=== PATIENT | male | born 1985 | race Caucasian/White ===

== ENCOUNTER 2018-12-15 23:12 | Inpatient (IN) | payer SELFPAY ==
[~2018-12-15] VITALS: Ht 177.8 cm; Wt 151.7 kg
[2018-12-15] MEDS: IPRATRPIUM/ALBUTEROL 0.5/2.5MG 3 ML NEBU. NEB SCH (20:50)
[2018-12-16] VITALS (11 sets, daily range): BP systolic 120–193; BP diastolic 88–123
[2018-12-16] MEDS ORDERED: THIAMINE 200 MG/2 ML VIAL. IV ONE (00:14)
[2018-12-16] MEDS ORDERED: FOLIC ACID 5 MG/ML SYRINGE for ER IV ONE (00:15)
--- NOTE | 2018-12-16 00:20 | ED.ADGEN ---
Past History Past Medical History: Alcoholism, Other Past Surgical History: No Surgical History Smoking: Greater than 1 pack/day Alcohol Use: Heavy Drug Use: None Adult General Chief Complaint Chief Complaint ".. I am hurting right here in the pit of my stomach..." 04/29 like.."... "I been taking petobismal off and on all week for the pain.. " HPI HPI Patient is a 33 year old male who presents with above hx and complaints of epigastric pain with acute onset at 1600 hrs. The patient denies any intake of bad food. Patient denies any specific ill contacts or travel. Patient denies any history immunosuppression. Patient has had some black stools but he has also been taking Pepto-Bismol. Patient has no previous history of cardiac disease or gallbladder disease. Patient gives no history of previous pancreatitis. Patient does drink between 3-4 pints of volka at a day. Has not been able to drink alcohol today because of his epigastric pain. Pain became more severe tonight at approximately 1600 hrs. No history of trauma. There is family history of gallbladder & DM disease with mother. Father hx [place] . Pt. normally follows with Dr. Levy Review of Systems Review of Systems Constitutional: Denies fever or chills [] Eyes: Denies change in visual acuity, redness, or eye pain [] HENT: Denies nasal congestion or sore throat [] Respiratory: Denies cough or shortness of breath [] Cardiovascular: No additional information not addressed in HPI [] GI: Patient complains of epigastric abdominal pain, nausea,. Denies vomiting,. Patient has had dark stools. : Denies dysuria or hematuria [] Musculoskeletal: Denies back pain or joint pain [] Integument: Denies rash or skin lesions [] Neurologic: Denies headache, focal weakness or sensory changes [] Endocrine: Denies polyuria or polydipsia [] All other systems were reviewed and found to be within normal limits, except as documented in this note. Family History Family History Mother had a cholecystectomy and diabetic . Father had an early [place] 40s Current Medications Current Medications Current Medications Medications (Trade) Dose Ordered Sig/Oriana Start Time Stop Time Status Last Admin Dose Admin Ceftriaxone Sodium 1 gm/ Sodium Chloride 50 ml @ 100 mls/hr 1X ONCE 12/16/18 02:00 12/16/18 02:29 DC 12/16/18 02:32 100 MLS/HR Ceftriaxone Sodium (Rocephin) 1 gm STK-MED ONCE 12/16/18 02:29 12/16/18 02:30 DC Famotidine (Pepcid Vial) 20 mg 1X ONCE 12/16/18 01:00 12/16/18 01:01 DC 12/16/18 00:32 20 MG Fentanyl Citrate (Fentanyl 2ml Vial) 50 mcg PRN Q2HR PRN 12/16/18 03:30 12/17/18 03:29 Folic Acid (FOLIC ACID SYRINGE for ER) 5 mg STK-MED ONCE 12/16/18 00:15 12/16/18 00:16 DC Info (Do NOT chart on this entry -- for MONITORING) 1 each PRN DAILY PRN 12/16/18 00:30 12/18/18 00:29 Iohexol (Omnipaque 240 Mg/ml) 30 ml 1X ONCE 12/16/18 01:00 12/16/18 01:01 DC 12/16/18 01:28 30 ML Iohexol (Omnipaque 300 Mg/ml) 75 ml 1X ONCE 12/16/18 01:00 12/16/18 01:01 DC 12/16/18 01:27 75 ML Lactated Ringer's 1,000 ml @ 160 mls/hr Q6H15M 12/16/18 03:30 Lorazepam (Ativan) 2 mg PRN 1X PRN 12/16/18 03:30 Magnesium Hydroxide (Milk Of Magnesia) 2,400 mg 1X ONCE 12/16/18 01:00 12/16/18 01:01 DC 12/16/18 00:32 2,400 MG Metronidazole 100 ml @ 100 mls/hr 1X ONCE 12/16/18 02:00 12/16/18 02:59 DC 12/16/18 02:32 100 MLS/HR Morphine Sulfate (Morphine 10mg Syringe) 10 mg 1X ONCE 12/16/18 03:00 12/16/18 03:01 DC 12/16/18 02:51 10 MG Multivitamins/ Minerals 10 ml/ Folic Acid 1 mg/ Thiamine HCl 100 mg/Lactated Ringer's 1,011.2 ml @ 1,011.2 mls/hr 1X ONCE 12/16/18 01:00 12/16/18 01:59 DC 12/16/18 00:32 1,011.2 MLS/HR Ondansetron HCl (Zofran) 8 mg PRN Q4HRS PRN 12/16/18 03:30 12/17/18 03:29 Sodium Chloride 50 ml @ As Directed STK-MED ONCE 12/16/18 02:29 12/16/18 02:30 DC Thiamine HCl (Thiamine Vial) 200 mg STK-MED ONCE 12/16/18 00:14 12/16/18 00:15 DC See nursing for home medications Allergies Allergies Allergies Coded Allergies Type Severity Reaction Last Updated Verified No Known Drug Allergies 02/01/14 No Physical Exam Physical Exam Constitutional: in acute distress, non-toxic appearance. [] HENT: Normocephalic, atraumatic, bilateral external ears normal, oropharynx moist, no oral exudates, nose normal. [place]. Poor dentition. Eyes: PERRLA, EOMI, conjunctiva normal, no discharge. Glasses Neck: Normal range of motion, no tenderness, supple, no stridor. [] Neck circumference more than 17 inches Cardiovascular:Heart rate regular rhythm, no murmur [] Lungs & Thorax: Bilateral breath sounds equal apex with scattered wheezes, and some basilar crackles on auscultation [] Abdomen: Bowel sounds decreased, soft, epigastric tenderness, no masses, no pulsatile masses. Rectal no gross tarry stools. Rebound to epigastric area. Testicles nontender Skin: Warm, dry, no erythema, no rash. [] Back: No tenderness, no CVA tenderness. [] Extremities: No tenderness, no cyanosis, no clubbing, ROM intact, no edema. [] No psoas sign Neurologic: Alert and oriented X 3, normal motor function, normal sensory function, no focal deficits noted. [] Psychologic: Affect anxious, judgement normal, mood normal. [] Current Patient Data Vital Signs Vital Signs Date Time Temp Pulse Resp B/P (MAP) Pulse Ox O2 Delivery O2 Flow Rate FiO2 12/16/18 03:04 90 14 180/95 (123) 95 Room Air 12/15/18 23:12 98.3 Lab Results Laboratory Tests Test 11/19/18 23:33 12/15/18 23:28 12/15/18 23:33 12/16/18 02:11 White Blood Count 14.4 x10^3/uL (4.0-11.0) H Red Blood Count 4.95 x10^6/uL (4.30-5.70) Hemoglobin 17.1 g/dL (13.0-17.5) Hematocrit 49.6 % (39.0-53.0) Mean Corpuscular Volume 100 fL (79-100) Mean Corpuscular Hemoglobin 35 pg (25-35) Mean Corpuscular Hemoglobin Concent 34 g/dL (31-37) Red Cell Distribution Width 13.5 % (11.5-14.5) Platelet Count 277 x10^3/uL (140-400) Neutrophils (%) (Auto) 73 % (31-73) Lymphocytes (%) (Auto) 19 % (24-48) L Monocytes (%) (Auto) 7 % (0-9) Eosinophils (%) (Auto) 1 % (0-3) Basophils (%) (Auto) 0 % (0-3) Neutrophils # (Auto) 10.5 x10^3uL (1.8-7.7) H Lymphocytes # (Auto) 2.7 x10^3/uL (1.0-4.8) Monocytes # (Auto) 0.9 x10^3/uL (0.0-1.1) Eosinophils # (Auto) 0.2 x10^3/uL (0.0-0.7) Basophils # (Auto) 0.1 x10^3/uL (0.0-0.2) Prothrombin Time 10.4 SEC (9.4-11.4) Prothrombin Time INR 1.0 (0.9-1.1) PTT 25 SEC (23-33) Sodium Level 139 mmol/L (136-145) Potassium Level 4.2 mmol/L (3.5-5.1) Chloride Level 101 mmol/L (98-107) Carbon Dioxide Level 22 mmol/L (21-32) Anion Gap 16 (6-14) H Blood Urea Nitrogen 7 mg/dL (8-26) L Creatinine 1.2 mg/dL (0.7-1.3) Estimated GFR (Cockcroft-Gault) 70.2 Glucose Level 147 mg/dL (70-99) H Calcium Level 9.4 mg/dL (8.5-10.1) Total Bilirubin 0.6 mg/dL (0.2-1.0) Direct Bilirubin 0.3 mg/dL (0.0-0.2) H Aspartate Amino Transferase (AST) 81 U/L (15-37) H Alanine Aminotransferase (ALT) 77 U/L (16-63) H Alkaline Phosphatase 122 U/L (46-116) H Creatine Kinase 44 U/L (39-308) Troponin I Quantitative < 0.017 ng/mL (0-0.055) Total Protein 7.0 g/dL (6.4-8.2) Albumin 3.5 g/dL (3.4-5.0) Lipase 2396 U/L (73-393) H Ethyl Alcohol Level < 10 mg/dL (0-10) Stool Occult Blood Negative (NEG) Amylase Level 209 U/L (25-115) H Urine Collection Type Unknown Urine Color Yellow Urine Clarity Clear Urine pH 7.5 Urine Specific [place] 1.015 Urine Protein 30 mg/dl (NEG-TRACE) Urine Glucose (UA) Neg mg/dL (NEG) Urine Ketones (Stick) Trace mg/dL (NEG) Urine Blood Neg (NEG) Urine Nitrite Neg (NEG) Urine Bilirubin Neg (NEG) Urine Urobilinogen Dipstick 0.2 mg/dL (0.2 mg/dL) Urine Leukocyte Esterase Neg (NEG) Urine RBC 0 /HPF (0-2) Urine WBC Occ /HPF (0-4) Urine Squamous Epithelial Cells Occ /LPF Urine Bacteria 0 /HPF (0-FEW) Urine Opiates Screen Pos (NEG) Urine Methadone Screen Neg (NEG) Urine Barbiturates Neg (NEG) Urine Phencyclidine Screen Neg (NEG) Urine Amphetamine/Methamphetamine Neg (NEG) Urine Benzodiazepines Screen Neg (NEG) Urine Cocaine Screen Neg (NEG) Urine Cannabinoids Screen Neg (NEG) Urine Ethyl Alcohol Neg (NEG) EKG EKG My interpretation EKG shows a sinus rhythm at 85 bpm. There is leftward axis. And some nonspecific anterior lateral changes. But no findings acute STEMI of contralateral changes[] Radiology/Procedures Radiology/Procedures My interpretation of abdomen film shows[] no free air under diaphragm. Nonspecific bowel gas pattern. Chest portion shows no acute cardiopulmonary findings with the exception of some basilar atelectasis. CT findings consistent with pancreatitis. No free air. See formal report when available. Course & Med Decision Making Course & Med Decision Making Pertinent Labs and Imaging studies reviewed. (See chart for details) Pt. admitted to Dr. Stone- for further eval and tx. [] Final Impression Final Impression 1. Abdomen Pain[] 2. Pancreatitis - lipase 2396 amylase 209 3. Gastritis 4. .History of excessive alcohol use 2-3 pints Volka a day 5. Diabetes -glucose 147 6. Elevated AST 81, ALT 77, alkaline phosphatase 122, 7. Leukocytosis 14.4 8. Tobacco use 1 pack per day 9. HTN Dragon Disclaimer Dragon Disclaimer This electronic medical record was generated, in whole or in part, using a voice recognition dictation system. Discharge Summary Visit Information Final Diagnosis Problems Medical Problems: (1) Pancreatitis Status: Acute Brief Hospital Course Allergies Allergies Coded Allergies Type Severity Reaction Last Updated Verified No Known Drug Allergies 02/01/14 No Vital Signs Vital Signs Date Time Temp Pulse Resp B/P (MAP) Pulse Ox O2 Delivery O2 Flow Rate FiO2 12/16/18 03:04 90 14 180/95 (123) 95 Room Air 12/15/18 23:12 98.3 Lab Results Laboratory Tests Test 11/19/18 23:33 12/15/18 23:28 12/15/18 23:33 12/16/18 02:11 White Blood Count 14.4 x10^3/uL (4.0-11.0) Red Blood Count 4.95 x10^6/uL (4.30-5.70) Hemoglobin 17.1 g/dL (13.0-17.5) Hematocrit 49.6 % (39.0-53.0) Mean Corpuscular Volume 100 fL (79-100) Mean Corpuscular Hemoglobin 35 pg (25-35) Mean Corpuscular Hemoglobin Concent 34 g/dL (31-37) Red Cell Distribution Width 13.5 % (11.5-14.5) Platelet Count 277 x10^3/uL (140-400) Neutrophils (%) (Auto) 73 % (31-73) Lymphocytes (%) (Auto) 19 % (24-48) Monocytes (%) (Auto) 7 % (0-9) Eosinophils (%) (Auto) 1 % (0-3) Basophils (%) (Auto) 0 % (0-3) Neutrophils # (Auto) 10.5 x10^3uL (1.8-7.7) Lymphocytes # (Auto) 2.7 x10^3/uL (1.0-4.8) Monocytes # (Auto) 0.9 x10^3/uL (0.0-1.1) Eosinophils # (Auto) 0.2 x10^3/uL (0.0-0.7) Basophils # (Auto) 0.1 x10^3/uL (0.0-0.2) Prothrombin Time 10.4 SEC (9.4-11.4) Prothromb Time International Ratio 1.0 (0.9-1.1) Activated Partial Thromboplast Time 25 SEC (23-33) Sodium Level 139 mmol/L (136-145) Potassium Level 4.2 mmol/L (3.5-5.1) Chloride Level 101 mmol/L (98-107) Carbon Dioxide Level 22 mmol/L (21-32) Anion Gap 16 (6-14) Blood Urea Nitrogen 7 mg/dL (8-26) Creatinine 1.2 mg/dL (0.7-1.3) Estimated GFR (Cockcroft-Gault) 70.2 Glucose Level 147 mg/dL (70-99) Calcium Level 9.4 mg/dL (8.5-10.1) Total Bilirubin 0.6 mg/dL (0.2-1.0) Direct Bilirubin 0.3 mg/dL (0.0-0.2) Aspartate Amino Transf (AST/SGOT) 81 U/L (15-37) Alanine Aminotransferase (ALT/SGPT) 77 U/L (16-63) Alkaline Phosphatase 122 U/L (46-116) Creatine Kinase 44 U/L (39-308) Troponin I Quantitative < 0.017 ng/mL (0-0.055) Total Protein 7.0 g/dL (6.4-8.2) Albumin 3.5 g/dL (3.4-5.0) Lipase 2396 U/L (73-393) Ethyl Alcohol Level < 10 mg/dL (0-10) Stool Occult Blood Negative (NEG) Amylase Level 209 U/L (25-115) Urine Collection Type Unknown Urine Color Yellow Urine Clarity Clear Urine pH 7.5 Urine Specific [place] 1.015 Urine Protein 30 mg/dl (NEG-TRACE) Urine Glucose (UA) Neg mg/dL (NEG) Urine Ketones (Stick) Trace mg/dL (NEG) Urine Blood Neg (NEG) Urine Nitrite Neg (NEG) Urine Bilirubin Neg (NEG) Urine Urobilinogen Dipstick 0.2 mg/dL (0.2 mg/dL) Urine Leukocyte Esterase Neg (NEG) Urine RBC 0 /HPF (0-2) Urine WBC Occ /HPF (0-4) Urine Squamous Epithelial Cells Occ /LPF Urine Bacteria 0 /HPF (0-FEW) Urine Opiates Screen Pos (NEG) Urine Methadone Screen Neg (NEG) Urine Barbiturates Neg (NEG) Urine Phencyclidine Screen Neg (NEG) Urine Amphetamine/Methamphetamine Neg (NEG) Urine Benzodiazepines Screen Neg (NEG) Urine Cocaine Screen Neg (NEG) Urine Cannabinoids Screen Neg (NEG) Urine Ethyl Alcohol Neg (NEG) Brief Hospital Course Mr. Isbell is a 33 old male who presented with pancreatitis . Admit Dr. Stone Discharge Information Condition at Discharge: Improved, Stable Dischare Medications Current Medications Lactated Ringer's 1,000 ml @ 1,000 mls/hr Q1H IV Last administered on at 01:18; Admin Dose 1,000 MLS/HR; Start 12/16/18 at 01:00; Stop 12/16/18 at 01:59; Status DC Ondansetron HCl (Zofran) 8 mg 1X ONCE IV Last administered on 12/16/18at 00:32 ; Admin Dose 8 MG; Start 12/16/18 at 01:00; Stop 12/16/18 at 01:01; Status DC Famotidine (Pepcid Vial) 20 mg 1X ONCE IVP Last administered on 12/16/18at 00: 32; Admin Dose 20 MG; Start 12/16/18 at 01:00; Stop 12/16/18 at 01:01; Status DC Multivitamins/ Minerals 10 ml/ Folic Acid 1 mg/ Thiamine HCl 100 mg/Lactated Ringer's 1,011.2 ml @ 1,011.2 mls/hr 1X ONCE IV Last administered on at 00:32; Admin Dose 1,011.2 MLS/HR; Start 12/16/18 at 01:00; Stop 12/16/18 at 01:59; Status DC Magnesium Hydroxide (Milk Of Magnesia) 2,400 mg 1X ONCE PO Last administered on 12/16/18at 00:32; Admin Dose 2,400 MG; Start 12/16/18 at 01:00; Stop 12/16/18 at 01:01; Status DC Morphine Sulfate (Morphine 10mg Syringe) 10 mg 1X ONCE SQ Last administered on 12/16/18at 00:33; Admin Dose 10 MG; Start 12/16/18 at 01:00; Stop 12/16/18 at 01:01; Status DC Thiamine HCl (Thiamine Vial) 200 mg STK-MED ONCE IV ; Start 12/16/18 at 00:14; Stop 12/16/18 at 00:15; Status DC Folic Acid (FOLIC ACID SYRINGE for ER) 5 mg STK-MED ONCE IV ; Start 12/16/18 at 00:15; Stop 12/16/18 at 00:16; Status DC Iohexol (Omnipaque 240 Mg/ml) 30 ml 1X ONCE PO Last administered on 12/16/18at 01:28; Admin Dose 30 ML; Start 12/16/18 at 01:00; Stop 12/16/18 at 01:01; Status DC Iohexol (Omnipaque 300 Mg/ml) 75 ml 1X ONCE IV Last administered on 12/16/18at 01:27; Admin Dose 75 ML; Start 12/16/18 at 01:00; Stop 12/16/18 at 01:01; Status DC Info (Do NOT chart on this entry -- for MONITORING) 1 each PRN DAILY PRN MC SEE COMMENTS; Start 12/16/18 at 00:30; Stop 12/18/18 at 00:29 Lorazepam (Ativan) 2 mg 1X ONCE IV Last administered on 12/16/18at 01:36; Admin Dose 2 MG; Start 12/16/18 at 01:30; Stop 12/16/18 at 01:31; Status DC Ceftriaxone Sodium 1 gm/ Sodium Chloride 50 ml @ 100 mls/hr 1X ONCE IV Last administered on 12/16/18at 02:32; Admin Dose 100 MLS/HR; Start 12/16/18 at 02:00 ; Stop 12/16/18 at 02:29; Status DC Metronidazole 100 ml @ 100 mls/hr 1X ONCE IV Last administered on 12/16/18at 02:32; Admin Dose 100 MLS/HR; Start 12/16/18 at 02:00; Stop 12/16/18 at 02:59; Status DC Sodium Chloride 50 ml @ As Directed STK-MED ONCE .ROUTE ; Start 12/16/18 at 02: 29; Stop 12/16/18 at 02:30; Status DC Ceftriaxone Sodium (Rocephin) 1 gm STK-MED ONCE .ROUTE ; Start 12/16/18 at 02:29 ; Stop 12/16/18 at 02:30; Status DC Lactated Ringer's 1,000 ml @ 160 mls/hr Q6H15M IV Last administered on at 02:45; Admin Dose 160 MLS/HR; Start 12/16/18 at 02:45 Morphine Sulfate (Morphine 10mg Syringe) 10 mg 1X ONCE SQ Last administered on 12/16/18at 02:51; Admin Dose 10 MG; Start 12/16/18 at 03:00; Stop 12/16/18 at 03:01; Status DC Ondansetron HCl (Zofran) 8 mg PRN Q4HRS PRN IV NAUSEA/VOMITING; Start 12/16/18 at 03:30; Stop 12/17/18 at 03:29 Fentanyl Citrate (Fentanyl 2ml Vial) 50 mcg PRN Q2HR PRN IV PAIN; Start at 03:30; Stop 12/17/18 at 03:29 Lactated Ringer's 1,000 ml @ 160 mls/hr Q6H15M IV ; Start 12/16/18 at 03:30 Lorazepam (Ativan) 2 mg PRN 1X PRN IV seizure; Start 12/16/18 at 03:30 Active Scripts Active Reported Fluoxetine Hcl 20 Mg Capsule 20 Mg PO DAILY Olanzapine 10 Mg Tablet 10 Mg PO DAILY No Known Medications Prior To Admisstion (Info) Each 1 Each Dragon Disclaimer This chart was dictated in whole or in part using Voice Recognition software in a busy, high-work load, and often noisy Emergency Department environment. It may contain unintended and wholly unrecognized errors or omissions. IVONNE DRISCOLL MD Dec 16, 2018 00:20
[2018-12-16] MEDS ORDERED: CONTRAST GIVEN MC PRN (00:30)
[2018-12-16] MEDS ORDERED: MORPHINE SULFATE 10 MG/ML SYRINGE. SQ ONE ×2 (01:00→03:00)
[2018-12-16] MEDS ORDERED: IOHEXOL 300 MG/ML 75 ML VIAL. IV ONE (01:00)
[2018-12-16] MEDS ORDERED: IV RINGERS SOLUTION,LACTATED 1,000 ML IV SCH ×2 (01:00→03:30)
[2018-12-16] MEDS ORDERED: MVI, ADULT NO.4 WITH VIT K 10 ML, FOLIC ACID SYRINGE for ER 1 MG, THIAMINE INJ 100 MG i... IV ONE ×4 (01:00)
[2018-12-16] MEDS ORDERED: FAMOTIDINE 20 MG/2 ML VIAL IVP ONE (01:00)
[2018-12-16] MEDS ORDERED: IOHEXOL 240 MG/ML 50ML VIAL. PO ONE (01:00)
[2018-12-16] MEDS ORDERED: MAGNESIUM HYDROXIDE 2,400 MG/30 ML ORAL.SUSP. PO ONE (01:00)
[2018-12-16] MEDS ORDERED: ONDANSETRON PF 4 MG/2 ML VIAL. IV ONE (01:00)
[2018-12-16 01:43] LABS: FECAL OB PT NEGATIVE (NEG)
--- NOTE | 2018-12-16 02:03 | RAD ---
CT scan of the abdomen and pelvis with contrast 12/16/2018 CLINICAL HISTORY: Severe abdominal pain with nausea and vomiting for one day. TECHNIQUE: After the oral administration of contrast and the intravenous administration of 75 cc of Omnipaque 300, contiguous, 5 mm axial sections were obtained throughthe abdomen and pelvis. One or more of the following individualized dose reduction techniques were utilized for this study: 1. Automated exposure control. 2. Adjustment of the mA and/or kV according to patient size. 3. Use of iterative reconstruction technique. FINDINGS: Images through the lung bases demonstrate minimal dependent subsegmental atelectasis bilaterally. The liver is mildly enlarged measuring 24 cm in length. Decreased attenuation of the liver parenchyma is seen consistent with mild fatty infiltration. The spleen, adrenal glands and kidneys are within normal limits. The pancreas is enlarged and ill-defined. Increased density is seen within the fat surrounding the pancreas. These findings are consistent with acute pancreatitis. No pancreatic pseudocyst is seen. The abdominal aorta tapers normally. The gallbladder is well-distended. No free fluid or free air is within the abdomen. There is no evidence of bowel obstruction. The appendix is well-visualized and is within normal limits. Images through the pelvis demonstrate the urinary bladder distended with urine. Calcifications are seen within the pelvis consistent with phleboliths. No free fluid is seen. Minimal S-shaped curvature of the thoracolumbar spine is noted. IMPRESSION: Findings are seen consistent with acute pancreatitis. No pancreatic pseudocyst is seen. Electronically signed by: Arnel Billings MD (12/16/2018 2:00 AM) [id number]
[2018-12-16] MEDS ORDERED: cefTRIAXone SODIUM 1 GM VIAL ONE (02:29)
[2018-12-16] MEDS ORDERED: IV NORMAL SALINE 50ML 50 ML ONE (02:29)
[2018-12-16 02:37] LABS: BARBITURATES NEG (NEG); BENZODIAZEPINES NEG (NEG); CANNABINOIDS NEG (NEG); COCAINE NEG (NEG); METHADONE NEG (NEG); OPIATES POS (NEG); PHENCYCLIDINE NEG (NEG)
[2018-12-16 02:38] LABS: BACTERIA,URINE 0 /HPF (0-FEW); BILIRUBIN,URINE NEG (NEG); CLARITY,URINE CLEAR; COLOR,URINE YELLOW; GLUCOSE,URINE NEG (NEG); NITRITE,URINE NEG (NEG); RBC,URINE 0 /HPF (0-2); SQUAMOUS EPITHELIAL CELL,UR OCC /LPF; UROBILINOGEN,URINE 0.2 mg/dL (0.2 mg/dL); WBC,URINE OCC /HPF (0-4)
[2018-12-16 02:40] LABS: AMPHETAMINE/METHAMPHETAMINE NEG (NEG)
[2018-12-16] MEDS: IV RINGERS SOLUTION,LACTATED 1,000 ML IV SCH ×2 (02:45→09:00)
--- NOTE | 2018-12-16 03:10 | RAD ---
Acute abdominal series to include a PA chest radiograph 12/16/2018 Clinical History: Abdominal pain A PA digital radiograph of the chest was obtained. 2 AP supine and an erect AP digital radiographs of the abdomen/pelvis were obtained. Comparison study is dated 02/01/2014. The cardiac and mediastinal silhouettes are within normal limits in size and configuration. No pulmonary infiltrate is seen. No pleural effusion or pneumothorax is noted. The abdominal bowel gas pattern is nonobstructive. There is no evidence of free air. No radiopaque calculus is seen. Calcifications are seen within the pelvis consistent with phleboliths. The osseous structures are grossly intact. Impression: Nonobstructive bowel gas pattern. Electronically signed by: Arnel Billings MD (12/16/2018 3:07 AM) [id number]
[2018-12-16] MEDS ORDERED: ONDANSETRON PF 4 MG/2 ML VIAL. IV PRN (03:30)
[2018-12-16] MEDS ORDERED: OLAN10TA9 PO (04:20)
[2018-12-16] MEDS ORDERED: FLUO20CA8 PO (04:20)
[2018-12-16] MEDS ORDERED: MULT1TAB52 PO (04:40)
[2018-12-16] MEDS ORDERED: ESOM20CA PO (04:42)
[2018-12-16] MEDS: FAMOTIDINE 20 MG/2 ML VIAL IVP SCH ×2 (08:03→19:19)
[2018-12-16] MEDS: MVI, ADULT NO.4 WITH VIT K 10 ML, FOLIC ACID SYRINGE for ER 1 MG, THIAMINE INJ 100 MG i... IV SCH ×4 (09:00)
[2018-12-16] MEDS: HYDROmorphone PF 2 MG/ML VIAL IV PRN ×2 (10:01→13:32)
[2018-12-16 10:04] LABS: BASO # 0.1 x10^3/uL (0.0-0.2); BASO % 1 % (0-3); EOS % 0 % (0-3); HEMATOCRIT 51.1 % (39.0-53.0); HEMOGLOBIN 17.4 g/dL (13.0-17.5); LYMPH # 0.6 x10^3/uL (1.0-4.8); LYMPH % 4 % (24-48); MEAN CORPUSCULAR HEMOGLOBIN 34 pg (25-35); MEAN CORPUSCULAR HGB CONC 34 g/dL (31-37); MEAN CORPUSCULAR VOLUME 101 fL (79-100); MONO # 0.5 x10^3/uL (0.0-1.1); MONO % 4 % (0-9); NEUT # 12.4 x10^3uL (1.8-7.7); NEUT % 92 % (31-73); PLATELET COUNT 221 x10^3/uL (140-400); RED BLOOD COUNT 5.08 x10^6/uL (4.30-5.70); RED CELL DISTRIBUTION WIDTH 13.5 % (11.5-14.5); WHITE BLOOD COUNT 13.5 x10^3/uL (4.0-11.0)
[2018-12-16 10:12] LABS: ALBUMIN/GLOBULIN RATIO 0.8 (1.0-1.7); CALCIUM 8.7 mg/dL (8.5-10.1); CREATININE 1.1 mg/dL (0.7-1.3); GFR 77.6; POTASSIUM 4.3 mmol/L (3.5-5.1); TOTAL BILIRUBIN 0.7 mg/dL (0.2-1.0); TOTAL PROTEIN 6.8 g/dL (6.4-8.2)
[2018-12-16 10:44] LABS: % BANDS 16 % (0-9); % BASOS 1 % (0-3); % EOS 1 % (0-5); % LYMPHS 5 % (24-48); % MONOS 5 % (0-10); % SEGS 72 % (35-66); PLT ESTIMATE ADEQUATE (ADEQUATE)
[2018-12-16 10:45] LABS: TOXIC GRANULATION SLIGHT; TOXIC VACUOLATION PRESENT
[2018-12-16] MEDS: IPRATRPIUM/ALBUTEROL 0.5/2.5MG 3 ML NEBU. NEB SCH ×3 (11:59→20:50)
--- NOTE | 2018-12-16 13:26 | RAD ---
Abdominal ultrasound, 12/16/2018: HISTORY: Abnormal pancreatic and liver enzymes The study was limited by the patient's body habitus and difficulty in holding his breath. The gallbladder is within normal limits in size. There is no sonographic evidence of cholelithiasis. The liver is enlarged measuring 22 cm in craniocaudad extent. There is diffuse fatty change in the liver as also demonstrated on the current CT study. No hepatic mass is evident. The pancreas and central retroperitoneum including much of the aorta and inferior vena cava were obscured by overlying bowel. No renal abnormality is detected. The spleen is of normal size. No free fluid is evident in the abdomen. IMPRESSION: 1. Limited exam with nonvisualization of the pancreas. 2. Hepatomegaly with hepatic steatosis. Electronically signed by: Jeff Lovett MD (12/16/2018 1:23 PM) [facility]
--- NOTE | 2018-12-16 16:27 | HP ---
ADMIT DATE: 12/16/2018 HISTORY OF PRESENT ILLNESS: The patient is a 33-year-old male patient, who presented to the Emergency Room complaining of severe epigastric pain that started around 4:00 in the afternoon. The patient denied any intake of bad food. He has been taking Pepto-Bismol off and on, although the week for the pain and had had some black stool. He has never had any previous history of cardiac or gallbladder disease. No history of previous pancreatitis. The patient does drink between 3-4 pints of vodka every day and has not been able to drink alcohol today because of his epigastric pain that has become severe and therefore he came to the Emergency Room for further evaluation and he was extensively investigated. His lab work showed that he has elevated lipase at 2396. His liver enzymes are all elevated. His white cell count was high also at 14,400. He has had a CT scan of the abdomen and pelvis, which basically showed that the findings are seen consistent with acute pancreatitis. No pancreatic pseudocyst is seen. The patient was admitted, kept n.p.o., started on IV fluid, IV pain medication, antiemetic. PAST MEDICAL HISTORY: Remarkable for morbid obesity and alcoholism. PAST SURGICAL HISTORY: Significant for two wisdom tooth extraction. ALLERGIES: He has no known drug allergies. MEDICATIONS: He is currently on following medications: He is on fluoxetine 20 mg once a day, olanzapine 10 mg daily. He is on Nexium 20 mg once a day, and multivitamin 1 tablet once a day. FAMILY HISTORY: He has one brother that he talks to and he is apparently healthy. He has one brother and sister he does not talk to. He apparently does not know his biological father, but mother is alive and has diabetes. SOCIAL HISTORY: He is , has no children. He smokes 1 to 1-1/2 packs a day. He said he buys 1.75 liters of vodka that lasting for 2-3 days. He does not use any drugs. 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 REVIEW OF SYSTEMS: The patient denied any blurring of vision, cataract, glaucoma or macular degeneration. Denied any earache, tinnitus or sensorineural deafness. Denied any nosebleeds, stuffy nose or postnasal drip. Denied any sore throat, sore tongue, toothache, hoarseness of voice or difficulty swallowing. He did have some nausea, but no vomiting and has had also some black stool. Denied any dysuria, frequency or hematuria. Denied any chest pain, shortness of breath, orthopnea, or paroxysmal nocturnal dyspnea. Denied any cough, phlegm or hemoptysis. PHYSICAL EXAMINATION: GENERAL: On arrival to the Emergency Room, the patient was awake, alert. There is no pallor, jaundice, cyanosis, or thyromegaly. No jugular venous distension. No lower limb edema. VITAL SIGNS: His heart rate was 107, blood pressure was 144/103. His temperature was 98.3, respiratory rate 20, and oxygen saturation was 97% on room air. HEAD, EYES, EARS, NOSE AND THROAT: Showed normocephalic, atraumatic. NECK: Supple. HEART: Showed normal first and second heart sounds with no gallop, rub or murmur. CHEST: Clear to auscultation. No crepitation or rhonchi. ABDOMEN: Distended, soft, nontender. No guarding or rigidity. No organomegaly. All hernial orifice intact. Bowel sounds normal. NEUROLOGIC: He was awake, alert, responding appropriately. All cranial nerves intact. EXTREMITIES: He moves extremities without difficulty. LABORATORY DATA: On admission showed a white cell count 14,400, hemoglobin 17.1, hematocrit 49, MCV 100, and platelet count of 277,000 with normal manual differential. His serum sodium was 139, potassium 4.2, chloride 101, bicarbonate 22, anion gap of 16, BUN 7, creatinine 1.2, estimated GFR was 70 mL per minute, his glucose 147, calcium was 9.4. Total bilirubin was normal. AST, ALT, alkaline phosphatase was slightly elevated. His CK was 44. Total protein was 7, albumin 3.5. Serum lipase was 2396. His prothrombin time was 10.4, INR of 1, aPTT was 25. Urinalysis showed the urine was yellow, clear with a pH of 7.5, specific gravity of 1.015. There was small amount of protein, negative for glucose, trace of ketones, negative for blood, nitrite and leukocyte esterase. There were no rbc's, no wbc's, and no bacteria. His toxic screen was positive for opiates, negative for methadone, barbiturates, phencyclidine, amphetamine, methamphetamine, benzodiazepine, cocaine, cannabinoids. His blood alcohol level was less than 10. He apparently has had acute abdomen series, which basically showed the cardiac and mediastinal silhouettes are within normal limits in size and configuration. No pulmonary infiltrates are seen. No pleural effusion or pneumothorax is noted. The abdominal bowel gas pattern is nonobstructive. There is no evidence of free air. No radiopaque calculus is seen. Calcifications are seen within the pelvis consistent with phlebolith. The osseous structures are grossly intact. His CT scan of the abdomen and pelvis showed that the images through the lung bases demonstrate minimal dependent subsegmental atelectasis bilaterally. The liver is mildly enlarged measuring 24 cm in length, decreased attenuation of the liver. Parenchyma is seen consistent with mild fatty infiltration. The spleen, adrenal glands and kidneys are within normal limits. The pancreas is enlarged and ill-defined. Increased density is seen within the fat surrounding the pancreas. These findings are consistent with acute pancreatitis. No pancreatic pseudocyst is seen. The abdominal aorta tapers normally. The gallbladder is well distended. No free fluid or free air is within the abdomen. There is no evidence of bowel obstruction. Appendix is well visualized and is within normal limits. Images through the pelvis demonstrate that urinary bladder is distended with urine. Calcifications are seen within the pelvis consistent with phlebolith. No free fluid is seen. Minimal S-shaped curvature of the thoracolumbar spine is noted. IMPRESSION: The patient has finding consistent with acute pancreatitis. No pancreatic pseudocyst is seen. The patient was admitted. Continue IV fluid, continue with alcohol withdrawal protocol, pain medication as well as antiemetic. We will monitor his lab work closely and decide the further management accordingly. PORFIRIO CAMPBELL MD DR: LINDSAY/brunilda JOB#: [id number] / [id number]
[2018-12-16] MEDS ORDERED: diphenhydrAMINE 50 MG/ML VIAL IVP PRN (17:15)
[2018-12-16] MEDS ORDERED: HALOPERIDOL LACT 5 MG/ML VIAL. IM PRN (17:15)
[2018-12-16] MEDS ORDERED: cloNIDine HCL 0.1 MG TABLET PO PRN (17:15)
[2018-12-16] MEDS ORDERED: chlordiazePOXIDE HCL 25 MG CAPSULE PO PRN (17:15)
[2018-12-16] MEDS ORDERED: MAGNESIUM SULFATE 2GM 50 ML IV ONE (17:15)
--- NOTE | 2018-12-16 19:08 | EKG ---
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
--- NOTE | 2018-12-16 19:08 | EKG ---
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
[2018-12-16] MEDS ORDERED: IV NORMAL SALINE 1,000ML 1,000 ML IV SCH (19:15)
[2018-12-16] MEDS ORDERED: MAGNESIUM HYDROXIDE 2,400 MG/30 ML ORAL.SUSP. PO SCH (21:00)
[2018-12-16] MEDS: chlordiazePOXIDE HCL 25 MG CAPSULE PO PRN (21:46)
[2018-12-17] VITALS (10 sets, daily range): BP systolic 122–157; BP diastolic 68–96
[2018-12-17] MEDS: HYDROmorphone PF 2 MG/ML VIAL IV PRN ×2 (01:05→08:09)
[2018-12-17] MEDS: chlordiazePOXIDE HCL 25 MG CAPSULE PO PRN ×2 (02:06→06:14)
[2018-12-17] MEDS: IPRATRPIUM/ALBUTEROL 0.5/2.5MG 3 ML NEBU. NEB SCH (05:42)
[2018-12-17 08:37] LABS: BGAS PH 7.29 (7.35-7.46)
[2018-12-17 08:45] LABS: RED BLOOD COUNT 4.97 x10^6/uL (4.30-5.70); WHITE BLOOD COUNT 16.5 x10^3/uL (4.0-11.0)
[2018-12-17 08:56] LABS: ALBUMIN 2.6 g/dL (3.4-5.0); ALBUMIN/GLOBULIN RATIO 0.7 (1.0-1.7); CALCIUM 8.4 mg/dL (8.5-10.1); CREATININE 1.7 mg/dL (0.7-1.3); GFR 46.9; MAGNESIUM 2.3 mg/dL (1.8-2.4); POTASSIUM 4.3 mmol/L (3.5-5.1); TOTAL PROTEIN 6.3 g/dL (6.4-8.2)
[2018-12-17] MEDS: MVI, ADULT NO.4 WITH VIT K 10 ML, FOLIC ACID SYRINGE for ER 1 MG, THIAMINE INJ 100 MG i... IV SCH ×4 (09:02)
[2018-12-17] MEDS: FAMOTIDINE 20 MG/2 ML VIAL IVP SCH (09:03)
[2018-12-17] MEDS ORDERED: LORazepam 1 MG TABLET PO PRN ×2 (09:15)
[2018-12-17 10:49] LABS: AMYLASE 650 U/L (25-115)
[2018-12-17 10:59] LABS: LIPASE 3339 U/L (73-393)
[2018-12-17] MEDS ORDERED: IPRATRPIUM/ALBUTEROL 0.5/2.5MG 3 ML NEBU. NEB SCH (12:00)
--- NOTE | 2018-12-17 12:49 | DS ---
DATE OF DISCHARGE: DISCHARGE TRANSFER SUMMARY HISTORY OF PRESENT ILLNESS: The patient is a 33-year-old male patient who was brought to the Emergency Room complaining of severe epigastric pain that started around 4:00 in the afternoon. The day before admission, the patient denied any intake of bad food, has been taking Pepto-Bismol off and on, although the whole week for the pain and had had some black stool, has never had any previous history of cardiac or gallbladder disease. No history of previous pancreatitis. The patient does drink between 3-4 pints of vodka every day and has not been able to drink alcohol on the day of admission because of his epigastric pain that has become severe and therefore he came to the Emergency Room and he was extensively investigated. His lab work showed his serum lipase was elevated up to 2396. He has also some mild leukocytosis, his white cell count also was high at 14,400. CT scan of the abdomen and pelvis showed that he has findings consistent with acute pancreatitis, but no evidence of pancreatic pseudocyst. He was admitted and started on IV fluid, pain medication, and antiemetic. He was also treated for alcohol withdrawal protocol. Unfortunately, his kidney function has deteriorated despite giving him huge amount of fluid. He also has severe obstructive sleep apnea and he is borderline hypoxic. His white cell count started rising again this morning and his serum lipase has risen yesterday to 6500; today, they are 3339. His creatinine has risen from 1.1 up to 1.7 and given these multiple comorbidities, the decision was made to transfer him to [facility] ICU to consult the certified prosthetist/orthotist, the music librarian as well as the treating engineer. He has been extremely agitated this morning requiring Haldol, however. PHYSICAL EXAMINATION: GENERAL: When I saw him, he was resting slightly propped up in bed, in no apparent distress. There was no pallor, jaundice, cyanosis, or thyromegaly. No jugular venous distension. No lower limb edema. VITAL SIGNS: His heart rate was 134, blood pressure was 130/92, temperature was 99.3, respiratory rate was 22 and oxygen saturation was 91% on 4 liters of oxygen dropped down to 89, sometimes even on 4 liters. HEAD, EYES, EARS, NOSE AND THROAT: Showed normocephalic, atraumatic. NECK: Supple. HEART: Showed normal first and second heart sounds. No gallop, rub or murmur. CHEST: Shows central trachea, equal bilateral expansion, air entry, vesicular sounds. No crepitation or rhonchi. ABDOMEN: Distended, soft, nontender. No guarding or rigidity. No organomegaly. All hernial orifices intact. Bowel sounds normal. NEUROLOGIC: He was lethargic, but arousable. All cranial nerves intact. He moves extremities without difficulty. His intake over the last 24 hours was 2220, no output was recorded. His lab work as of this morning showed a white cell count of 16,500, hemoglobin 17, hematocrit 51, MCV 103 and platelet count of 140,000. His chemistry showed a serum sodium 139, potassium 4.3, chloride 104, bicarbonate 24, anion gap of 11, BUN 15, creatinine 1.7, estimated GFR was 46 mL per minute. His glucose was 126, lactic acid is 1.4, calcium was 8.4, magnesium was 2.3. Total bilirubin, AST, ALT, alkaline phosphatase were normal. Total protein was 6.3, albumin 2.6. His lipase is down to 3339. His ammonia was only 30. His prothrombin time was 10.4, INR of 1, aPTT was 25. Urinalysis was essentially unremarkable. Toxic screen was positive for opiates. He was thus transferred to continue on his alcohol withdrawal protocol. Continue with IV fluid, continue with pain medication, antiemetic as well as continue GI prophylaxis as well as DVT prophylaxis. We will consult the certified prosthetist/orthotist, music librarian as well as warehouse manager together with treating engineer. DISCHARGE DIAGNOSES: Acute alcohol-induced pancreatitis, alcoholism and alcohol withdrawal protocol. Acute kidney injury, his creatinine has risen from 1-1.7, possible sepsis with tachycardia versus volume depletion, morbid obesity, obstructive sleep apnea and acute on chronic hypoxic respiratory failure. PORFIRIO CAMPBELL MD DR: LINDSAY/brunilda JOB#: [id number] / [id number]
[2018-12-19 06:44] LABS: HEMATOCRIT 49.6 % (39.0-53.0); HEMOGLOBIN 17.1 g/dL (13.0-17.5); LYMPH % 19 % (24-48); MEAN CORPUSCULAR HEMOGLOBIN 35 pg (25-35); MEAN CORPUSCULAR HGB CONC 34 g/dL (31-37); MEAN CORPUSCULAR VOLUME 100 fL (79-100); NEUT % 73 % (31-73); PLATELET COUNT 277 x10^3/uL (140-400); RED BLOOD COUNT 4.95 x10^6/uL (4.30-5.70); RED CELL DISTRIBUTION WIDTH 13.5 % (11.5-14.5); WHITE BLOOD COUNT 14.4 x10^3/uL (4.0-11.0)
[2018-12-19 06:45] LABS: ALBUMIN 3.5 g/dL (3.4-5.0); BASO # 0.1 x10^3/uL (0.0-0.2); BASO % 0 % (0-3); CALCIUM 9.4 mg/dL (8.5-10.1); CREATININE 1.2 mg/dL (0.7-1.3); EOS # 0.2 x10^3/uL (0.0-0.7); EOS % 1 % (0-3); GFR 70.2; LYMPH # 2.7 x10^3/uL (1.0-4.8); MONO # 0.9 x10^3/uL (0.0-1.1); MONO % 7 % (0-9); NEUT # 10.5 x10^3uL (1.8-7.7); TOTAL BILIRUBIN 0.6 mg/dL (0.2-1.0)
[2018-12-19 06:46] LABS: DIRECT BILIRUBIN 0.3 mg/dL (0.0-0.2); POTASSIUM 4.2 mmol/L (3.5-5.1)
== END 2018-12-17 12:20 | disposition short-term general hospital (02) | DRG 871 ==
LOC: ER 23:12 → 1 SOUTH 12-16 03:30 → ICU 12-16 15:10
PROVIDERS: ADMIT Internal Medicine; ATTEND Internal Medicine
DX: A41.9 Sepsis, unspecified organism (principal); K85.20 Alcohol induced acute pancreatitis without necrosis or infection; J96.21 Acute and chronic respiratory failure with hypoxia; N17.9 Acute kidney failure, unspecified; F17.210 Nicotine dependence, cigarettes, uncomplicated; G47.33 Obstructive sleep apnea (adult) (pediatric); F10.20 Alcohol dependence, uncomplicated; E66.01 Morbid (severe) obesity due to excess calories; Z83.3 Family history of diabetes mellitus; Z82.49 Family history of ischemic heart disease and other diseases of the circulatory system; Z90.49 Acquired absence of other specified parts of digestive tract; Z79.899 Other long term (current) drug therapy
CPT/HCPCS: 36415; 74022; 74177; 76700; 80048; 80053; 80061; 80076; 80307; 81001; 82140; 82150; 82274; 82550; 82803; 83605; 83690; 83735; 84484; 85007; 85025; 85027; 85610; 85730; 87040; 93005; 94640; 96361; 96365; 96367; 96368; 96372; 96375; G0480; J0696; J1170; J1630; J2060; J2270; J2405; J3010; J3475; J3490; J7120; J7620; Q9966; Q9967; 99285-25; J7030